=== PATIENT | female | born 1950 | race Caucasian/White ===

== ENCOUNTER 2017-04-20 21:44 | Emergency (ER) | payer MEDICARE, OTHER ==
[2017-04-20 22:11] VITALS: BP 198/104
== END 2017-04-20 23:17 | disposition left against medical advice (07) ==
LOC: ED 21:44
DX: R51 Headache (principal); M54.2 Cervicalgia; R10.9 Unspecified abdominal pain; Z53.21 Procedure and treatment not carried out due to patient leaving prior to being seen by health care provider
CPT/HCPCS: 99283

== ENCOUNTER 2017-04-21 14:36 | Emergency (ER) | payer MEDICARE, OTHER ==
[2017-04-21] MEDS ORDERED: SODIUM CHLORIDE 0.9% 1,000 ML IV ONE (15:36)
[2017-04-21] MEDS ORDERED: ONDANSETRON 4 MG/2 ML VIAL IVP STA ×2 (15:36→18:09)
[2017-04-21] MEDS ORDERED: HYDROmorphone 1 MG/ML SYRINGE IVP STA ×2 (15:36→17:19)
[2017-04-21 15:45] LABS: UA w/ MICROSCOPIC CHARGE YES; WBC,URINE 0-3 /HPF (0-5)
[2017-04-21] MEDS ORDERED: HYDROmorphone 1 MG/ML SYRINGE ONE ×2 (15:46→17:31)
--- NOTE | 2017-04-21 15:46 | ED Physician Documentation ---
History of Present Illness - Stated complaint Stated Complaint: SOLER/ABD PX/BACK PX - Chief complaint Chief Complaint: General - History obtained from History obtained from: Patient, Friend - History of Present Illness Timing: Other (Gradual onset headache yesterday morning, occipital radiating to the jaws. It waxed and waned throughout the day, she was actually in the ER last night but left prior to being seen. There is no associated fever. She has mild nausea. This morning she developed a low backache which after a couple of hours radiated to the front, like bad period cramps. She has currently untreated blood pressure, no history of colonoscopy. No abdominal or other surgeries.) Review of Systems Ten Systems: 10 systems reviewed and negative Constitutional: denies: Fever, Chills Eyes: reports: Photophobia. denies: Loss of vision Nose: denies: Rhinorrhea / runny nose, Congestion Throat: denies: Sore throat Cardiac: denies: Chest pain / pressure, Palpitations Respiratory: denies: Dyspnea, Cough GI: reports: Abdominal Pain, Nausea. denies: Vomiting, Constipation, Diarrhea : denies: Dysuria, Frequency PD PAST MEDICAL HISTORY - Past Medical History Cardiovascular: Hypertension Other Past Medical History: migraines - Past Surgical History Past Surgical History: No - Present Medications Home Medications: Ambulatory Orders Medication Instructions Recorded Confirmed Phenazopyridine HCl 100 mg PO DAILY 03/25/16 04/21/17 - Allergies Allergies/Adverse Reactions: Allergies Allergy/AdvReac Type Severity Reaction Status Date / Time Antihistamines - Alkylamine Allergy Unknown Verified 04/20/17 22:07 - Social History Does the pt smoke?: Yes Smoking Status: Current every day smoker Does the pt drink ETOH?: No Does the pt have substance abuse?: No - Immunizations Immunizations are current?: No - POLST Patient has POLST: No PD ED PE NORMAL - Vitals Vital signs reviewed: Yes - General General: Alert and oriented X 3, No acute distress, Well developed/nourished - HEENT HEENT: PERRL, EOMI, Ears normal - Neck Neck: Supple, no meningeal sign, No bony TTP - Cardiac Cardiac: RRR, No murmur - Respiratory Respiratory: No respiratory distress, Clear bilaterally - Abdomen Abdomen: Normal bowel sounds, Soft, Non tender - Back Back: No CVA TTP, No spinal TTP - Derm Derm: Normal color, Warm and dry - Extremities Extremities: No edema, No calf tenderness / cord - Neuro Neuro: Alert and oriented X 3, 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, No motor deficit, No sensory deficit, Normal speech - Psych Psych: Normal mood, Normal affect Results - Vitals Vitals: Vital Signs - 24 hr 04/21/17 04/21/17 04/21/17 14:40 16:54 18:09 Temperature 36.2 C L Heart Rate 91 89 94 Respiratory 18 15 20 Rate Blood Pressure 184/116 H 207/103 H 184/124 H O2 Saturation 97 100 98 Oxygen O2 Source Room air - Labs Labs: Laboratory Tests 04/21/17 04/21/17 04/21/17 14:55 16:00 16:00 WBC 8.8 RBC 4.88 Hgb 15.1 Hct 44.7 MCV 91.5 MCH 30.8 MCHC 33.7 RDW 13.7 Plt Count 321 MPV 6.9 L Neut # 5.8 Lymph # 2.1 [place] # 0.7 Eos # 0.1 Baso # 0.1 Absolute Nucleated RBC 0.00 Nucleated RBCs 0.0 ESR Sodium 137 Potassium 4.0 Chloride 99 L Carbon Dioxide 29 Anion Gap 9.0 BUN 11 Creatinine 0.7 Estimated GFR (MDRD) 84 L Glucose 105 H Calcium 10.3 Total Bilirubin 0.6 AST 22 ALT 18 Alkaline Phosphatase 58 Total Protein 8.4 H Albumin 4.8 Globulin 3.6 Albumin/Globulin Ratio 1.3 Lipase 23 Urine Color ORANGE Urine Clarity CLEAR Urine pH Ur Specific [place] Urine Protein Urine Glucose (UA) Urine Ketones Urine Occult Blood Urine Nitrite Urine Bilirubin Urine Urobilinogen Ur Leukocyte Esterase Urine RBC TNTC H Urine WBC 0-3 Ur Squamous Epith Cells RARE Squamous Urine Bacteria None Seen Ur Microscopic Review INDICATED Urine Culture Comments Not Reportable Ethyl Alcohol < 5.0 04/21/17 16:00 WBC RBC Hgb Hct MCV MCH MCHC RDW Plt Count MPV Neut # Lymph # [place] # Eos # Baso # Absolute Nucleated RBC Nucleated RBCs ESR 6 Sodium Potassium Chloride Carbon Dioxide Anion Gap BUN Creatinine Estimated GFR (MDRD) Glucose Calcium Total Bilirubin AST ALT Alkaline Phosphatase Total Protein Albumin Globulin Albumin/Globulin Ratio Lipase Urine Color Urine Clarity Urine pH Ur Specific [place] Urine Protein Urine Glucose (UA) Urine Ketones Urine Occult Blood Urine Nitrite Urine Bilirubin Urine Urobilinogen Ur Leukocyte Esterase Urine RBC Urine WBC Ur Squamous Epith Cells Urine Bacteria Ur Microscopic Review Urine Culture Comments Ethyl Alcohol - Rads (name of study) CT Head Radiology: EMP read contemporaneously (NAD) CT A/PO Radiology: EMP read contemporaneously (Diverticulosis, normal appendix) PD MEDICAL DECISION MAKING - ED course ED course: 66-year-old woman presents with multiple complaints including headache, abdominal, and back pain. After initial evaluation she was administered Dilaudid IV which resolved her headache, but not her stomach or back pain. On repeat examination after head CT, which was normal, she had developed some right lower quadrant tenderness. Urinalysis can be explained as she is taking some phenazopyridine. Given the migratory complaints, concern for intracranial emergency was less likely. A abdominal CT was done given the abdominal tenderness, this was negative. Patient requested discharge despite ongoing pain. Departure - Departure Disposition: 01 Home, Self Care Clinical Impression: Abdominal pain Qualifiers: Abdominal location: right lower quadrant Qualified Code(s): R10.31 - Right lower quadrant pain Back pain Qualifiers: Back pain location: low back pain Chronicity: acute Back pain laterality: bilateral Sciatica presence: without sciatica Qualified Code(s): M54.5 - Low back pain Headache Qualifiers: Headache type: unspecified Headache chronicity pattern: acute headache Intractability: not intractable Qualified Code(s): R51 - Headache Condition: Good Record reviewed to determine appropriate education?: Yes Instructions: ED Abdominal Pain Unkn Cause Comments: Return in 12-24 hours if not better, anytime if worse or if new symptoms develop. Your blood pressure was elevated today on check into the emergency department. This does not mean that you have hypertension, it is a common phenomenon to come to the emergency department and have elevated blood pressure. I recommend that she see her primary care physician within the week to have it rechecked when you are feeling better.
[2017-04-21] MEDS ORDERED: ONDANSETRON 4 MG/2 ML VIAL ONE ×2 (15:47→18:13)
--- NOTE | 2017-04-21 16:09 | CT Preliminary Report ---
Exam: CT Head W/O IMPRESSION: Normal head CT. [facility] SITE ID: [id number]
--- NOTE | 2017-04-21 16:12 | CT Report ---
EXAM: CT HEAD EXAM DATE: 04/21/2017 03:58 PM. CLINICAL HISTORY: Headache. COMPARISON: None. TECHNIQUE: Multiaxial CT images were obtained from the foramen magnum to the vertex. IV contrast: Non e. Reformats: Coronal. In accordance with CT protocol optimization, one or more of the following dose reduction techniques w ere utilized for this exam: automated exposure control, adjustment of mA and/or KV based on patient s ize, or use of iterative reconstructive technique. FINDINGS: Parenchyma: No intraparenchymal hemorrhage. No evidence of mass, midline shift, or CT findings of inf arction. Gama-white differentiation is distinct. Extraaxial Spaces: Normal for age. No subdural or epidural collections identified. Ventricles: Normal in size and position. Sinuses: Imaged paranasal sinuses, orbits, and mastoids show no significant abnormality. Bones: No evidence of fracture or calvarial defect. Other: None. IMPRESSION: Normal head CT. [facility] Referring Provider Line: [phone] SITE ID: [id number]
[2017-04-21 16:40] LABS: ALBUMIN/GLOBULIN RATIO 1.3 (1.0-2.2); BILIRUBIN,TOTAL 0.6 mg/dL (0.2-1.0); BUN - BLOOD UREA NITROGEN 11 mg/dL (6-20); CALCIUM 10.3 mg/dL (8.5-10.3); CARBON DIOXIDE - CO2 29 mmol/L (21-32); CHLORIDE 99 mmol/L (101-111); CREATININE 0.7 mg/dL (0.4-1.0); GFR - MDRD 84 (>89); GLUCOSE 105 mg/dL (70-100); LIPASE 23 U/L (22-51); SODIUM 137 mmol/L (135-145); TOTAL PROTEIN 8.4 g/dL (6.7-8.2)
[2017-04-21 17:04] LABS: BASOPHILS # (AUTO) 0.1 10^3/uL (0.0-0.1); BASOPHILS % (AUTO) 0.9 %; EOSINOPHILS # (AUTO) 0.1 10^3/uL (0.0-0.7); EOSINOPHILS % (AUTO) 0.7 %; HCT - HEMATOCRIT 44.7 % (37.0-47.0); HGB - HEMOGLOBIN 15.1 g/dL (12.0-16.0); LYMPHOCYTES # (AUTO) 2.1 10^3/uL (1.5-3.5); LYMPHOCYTES % (AUTO) 24.3 %; MEAN CORPUSCULAR HEMOGLOBIN 30.8 pg (27.0-31.0); MEAN CORPUSCULAR HGB CONC 33.7 g/dL (32.0-36.0); MEAN CORPUSCULAR VOLUME 91.5 fL (81.0-99.0); MEAN PLATELET VOLUME 6.9 fL (7.9-10.8); MONOCYTES # (AUTO) 0.7 10^3/uL (0.0-1.0); MONOCYTES % (AUTO) 7.9 %; NEUTROPHILS # (AUTO) 5.8 10^3/uL (1.5-6.6); NEUTROPHILS % (AUTO) 66.2 %; RED BLOOD COUNT 4.88 10^6/uL (4.20-5.40); RED CELL DISTRIBUTION WIDTH 13.7 % (12.0-15.0); UNCORRECTED WHITE BLOOD COUNT 8.8 x10^3/uL; WHITE BLOOD COUNT 8.8 x10^3/uL (4.8-10.8)
[2017-04-21] MEDS ORDERED: IOPAMIDOL-300 100 ML VIAL IVP ONE (17:55)
--- NOTE | 2017-04-21 18:37 | CT Preliminary Report ---
Exam: CT Abdomen/Pelvis W/ IMPRESSION: 1. Normal appendix. No focal right lower quadrant inflammation. 2. Diverticulosis. [facility] SITE ID: [id number]
--- NOTE | 2017-04-21 18:39 | CT Report ---
EXAM: CT ABDOMEN AND PELVIS EXAM DATE: 04/21/2017 05:58 PM. CLINICAL HISTORY: IV only, RLQ pain. COMPARISONS: 03/26/2017. TECHNIQUE: Routine helical CT imaging was performed through the abdomen and pelvis. IV contrast: 100 cc Isovue-300. Enteric contrast: No. Reconstructions: Coronal and sagittal. In accordance with CT protocol optimization, one or more of the following dose reduction techniques w ere utilized for this exam: automated exposure control, adjustment of mA and/or KV based on patient s ize, or use of iterative reconstructive technique. FINDINGS: Lung Bases: Mild cardiac enlargement noted. No effusions. Incidental small hiatal hernia noted. Liver: Normal. No masses. Gallbladder/Bile Ducts: Unremarkable. Spleen: Normal. Pancreas: Normal. Adrenal Glands: Normal. Kidneys: Normal. No masses or hydronephrosis. Peritoneal Cavity/Bowel: Normal. No free fluid, free air or adenopathy. No masses or acute inflammato ry process. The appendix is well visualized and normal. There are multiple diverticula seen which mos t severely affect the sigmoid colon. No wall thickening or adjacent inflammation seen. No obstructi on noted. Normal appendix seen on image 6, 21. The terminal ileum appears mildly thickened without s ignificant adjacent inflammation best seen on image 6, 16. This could be due to under distention. Pelvic Organs: Normal. The bladder and visualized pelvic organs are within normal limits. Vasculature: No aneurysms or other significant abnormality. Bones: No significant abnormality. Other: None. IMPRESSION: 1. Normal appendix. No focal right lower quadrant inflammation. 2. Diverticulosis. [facility] Referring Provider Line: [phone] SITE ID: [id number]
[2017-04-21] MEDS ORDERED: KETOROLAC 60 MG/2 ML VIAL IVP STA (18:50)
[2017-04-21] MEDS ORDERED: KETOROLAC 30 MG/ML VIAL ONE (18:56)
[2017-04-21] MEDS ORDERED: oxyCODONE/ACET 5/325 Prepack 4 PO STA (19:22)
[2017-04-21] MEDS ORDERED: oxyCODONE/ACET 5/325 Prepack 4 PO ONE (19:49)
[2017-04-21 20:00] VITALS: BP 164/98
== END 2017-04-21 20:29 | disposition home or self-care (01) ==
LOC: ED 14:36
DX: R51 Headache (principal); R10.31 Right lower quadrant pain; M54.5 Low back pain; I10 Essential (primary) hypertension; F17.200 Nicotine dependence, unspecified, uncomplicated
CPT/HCPCS: 36415; 70450; 74177; 80053; 81001; 83690; 85025; 85651; 86140; 96374; 96375; 96376; 99283; 99285; G0480; J1170; Q9967; 80320; 81003; 87086

== ENCOUNTER 2017-11-24 18:23 | Emergency (ER) | payer MEDICARE ==
[2017-11-24] MEDS ORDERED: predniSONE 20 MG TABLET PO STA (18:53)
[2017-11-24] MEDS ORDERED: IPRATROPIUM/ALBUTEROL 3 ML NEB INH STA (18:53)
--- NOTE | 2017-11-24 18:58 | ED Physician Documentation ---
PD HPI URI - Stated complaint Stated Complaint: DIFF BREATHING - Chief complaint Chief Complaint: Resp - History obtained from History obtained from: Patient - History of Present Illness Timing - onset: How many days ago (2) Timing duration: Days (2) Timing details: Gradual onset Pain level max: 3 Pain level now: 3 Associated symptoms: Nasal congestion, Rhinorrhea, Dyspnea. No: Fever Contributing factors: Sick contact, COPD / asthma (smokes 1ppd) Improves by: Rest, MDI/nebulizer (tried an inhaler for the first time earlier today and felt relief.) Worsened by: Activity, Breathing Similar symptoms before: Diagnosis (COPD, URI) Review of Systems Constitutional: denies: Fever, Chills Ears: denies: Ear pain Nose: reports: Rhinorrhea / runny nose, Congestion Throat: denies: Sore throat Cardiac: denies: Chest pain / pressure Respiratory: reports: Dyspnea, Cough, Wheezing GI: denies: Nausea, Vomiting, Diarrhea Skin: denies: Rash Musculoskeletal: denies: Neck pain, Back pain Neurologic: denies: Headache PD PAST MEDICAL HISTORY - Past Medical History Past Medical History: Yes Cardiovascular: Hypertension Neuro: Headache/migraine - Past Surgical History Past Surgical History: No - Present Medications Home Medications: Ambulatory Orders Medication Instructions Recorded Confirmed Albuterol Sulf [Ventolin Hfa 1 - 2 puffs INH Q4HR PRN #1 inhaler 11/24/17 Inhaler] Lisinopril 10 mg PO DAILY 11/24/17 11/24/17 predniSONE [Prednisone] 40 mg PO DAILY #10 tablet 11/24/17 - Allergies Allergies/Adverse Reactions: Allergies Allergy/AdvReac Type Severity Reaction Status Date / Time Antihistamines - Alkylamine Allergy Unknown Verified 04/20/17 22:07 - Social History Does the pt smoke?: Yes Smoking Status: Current every day smoker Does the pt drink ETOH?: No Does the pt have substance abuse?: No - Immunizations Immunizations are current?: No - POLST Patient has POLST: No PD ED PE NORMAL - Vitals Vital signs reviewed: Yes - General General: Alert and oriented X 3, No acute distress - HEENT HEENT: Moist mucous membranes - Neck Neck: Supple, no meningeal sign - Cardiac Cardiac: RRR, Strong equal pulses - Respiratory Respiratory: No respiratory distress, Other (Diminished breath sounds and wheezing bilaterally) - Abdomen Abdomen: Soft, Non tender, Non distended - Derm Derm: Warm and dry - Neuro Neuro: Alert and oriented X 3 - Psych Psych: Normal mood, Normal affect Results - Vitals Vitals: Vital Signs - 24 hr 11/24/17 11/24/17 11/24/17 18:26 19:20 20:16 Temperature 36.5 C Heart Rate 111 H 102 H 88 Respiratory 22 18 16 Rate Blood Pressure 204/121 H 202/111 H O2 Saturation 95 95 Oxygen O2 Source Room air PD MEDICAL DECISION MAKING - ED course Complexity details: reviewed old records, re-evaluated patient, considered differential, d/w patient ED course: Patient is a 67-year-old female with what appears to be a COPD exacerbation. Smokes 1 pack per day. She is also chronically hypertensive, blood pressure is normally between 180 and 200 systolic when she comes to the emergency department. Did not take her lisinopril today. Patient feels much better after nebulizer treatments as well as steroid treatment. She is not hypoxic. No respiratory distress. Systolic blood pressure decreased to 180. Headache resolved. We will have her follow-up with her doctor for further care. Patient counseled regarding signs and symptoms for which I believe and urgent re -evaluation would be necessary. Patient with good understanding of and agreement to plan and is comfortable going home at this time This document was made in part using voice recognition software. While efforts are made to proofread this document, sound alike and grammatical errors may occur. Departure - Departure Disposition: 01 Home, Self Care Clinical Impression: Viral URI with cough Hypertension Qualifiers: Hypertension type: unspecified Qualified Code(s): I10 - Essential (primary) hypertension Headache Qualifiers: Headache type: unspecified Headache chronicity pattern: acute headache Intractability: not intractable Qualified Code(s): R51 - Headache Condition: Good Instructions: ED URI Viral Follow-Up: Kellie Ghosh ARNP [Primary Care Provider] - Within 1 week Prescriptions: Albuterol Sulf [Ventolin Hfa Inhaler] 1 - 2 puffs INH Q4HR PRN #1 inhaler PRN Reason: Shortness Of Air/Wheezing predniSONE [Prednisone] 40 mg PO DAILY #10 tablet Comments: Return if you worsen. Use the inhaler every 3 hours as needed at home. Take your lisinopril when you arrive home tonight.
[2017-11-24] MEDS ORDERED: KETOROLAC 60 MG/2 ML VIAL IM STA (19:49)
[2017-11-24 20:16] VITALS: BP 202/111
== END 2017-11-24 20:42 | disposition home or self-care (01) ==
LOC: ED 18:23
DX: J06.9 Acute upper respiratory infection, unspecified (principal); B97.89 Other viral agents as the cause of diseases classified elsewhere; R05 Cough; I10 Essential (primary) hypertension; R51 Headache
CPT/HCPCS: 94640; 96372; 99283; 99284; J7512; J7620

== ENCOUNTER 2018-12-17 07:48 | Outpatient (CLI) | payer MEDICARE ==
[2018-12-17 10:55] LABS: BASOPHILS # (AUTO) 0.1 10^3/uL (0.0-0.1); BASOPHILS % (AUTO) 0.9 %; EOSINOPHILS # (AUTO) 0.2 10^3/uL (0.0-0.7); EOSINOPHILS % (AUTO) 2.3 %; HGB - HEMOGLOBIN 13.9 g/dL (12.0-16.0); LYMPHOCYTES # (AUTO) 1.6 10^3/uL (1.5-3.5); LYMPHOCYTES % (AUTO) 24.1 %; MEAN CORPUSCULAR HEMOGLOBIN 30.4 pg (27.0-31.0); MEAN CORPUSCULAR HGB CONC 33.1 g/dL (32.0-36.0); MEAN CORPUSCULAR VOLUME 91.8 fL (81.0-99.0); MEAN PLATELET VOLUME 7.2 fL (7.9-10.8); MONOCYTES # (AUTO) 0.5 10^3/uL (0.0-1.0); MONOCYTES % (AUTO) 7.8 %; NEUTROPHILS # (AUTO) 4.4 10^3/uL (1.5-6.6); NEUTROPHILS % (AUTO) 64.9 %; PLT - PLATELET COUNT 359 10^3/uL (130-450); RED BLOOD COUNT 4.57 10^6/uL (4.20-5.40); RED CELL DISTRIBUTION WIDTH 13.8 % (12.0-15.0); WHITE BLOOD COUNT 6.8 x10^3/uL (4.8-10.8)
[2018-12-17 11:29] LABS: ALBUMIN 4.4 g/dL (3.2-5.5); ALBUMIN/GLOBULIN RATIO 1.3 (1.0-2.2); ALKALINE PHOSPHATASE 54 IU/L (42-121); ALT ALANINE AMINOTRANSFERASE 19 IU/L (10-60); AST ASPARTATE AMINOTRANSFERASE 26 IU/L (10-42); BILIRUBIN,TOTAL 0.7 mg/dL (0.2-1.0); BUN - BLOOD UREA NITROGEN 15 mg/dL (6-20); CALCIUM 9.4 mg/dL (8.5-10.3); CARBON DIOXIDE - CO2 28 mmol/L (21-32); CHLORIDE 103 mmol/L (101-111); CHOLESTEROL 193 mg/dL; CREATININE 0.7 mg/dL (0.4-1.0); GFR - MDRD 83 (>89); GLUCOSE 100 mg/dL (70-100); HDL CHOLESTEROL 64 mg/dL; LDL CHOLESTEROL,CALCULATED 117 mg/dL; LDL/HDL RATIO 1.8 (<4.4); SODIUM 140 mmol/L (135-145); TOTAL PROTEIN 7.9 g/dL (6.7-8.2); VLDL CHOLESTEROL 12 mg/dL
== END 2018-12-17 07:49 | disposition home or self-care (01) ==
LOC: LAB.F 07:48
PROVIDERS: ATTEND Nurse Practitioner Family
DX: I10 Essential (primary) hypertension (principal); E78.5 Hyperlipidemia, unspecified
CPT/HCPCS: 36415; 80053; 80061; 83721; 84443; 85025

== ENCOUNTER 2020-08-27 15:20 | Outpatient (CLI) | payer MEDICARE | END 2020-08-27 23:59 | disposition home or self-care (01) | LOC: LAB.R 15:20 | PROVIDERS: ATTEND Physician Assistant | DX: J02.9 Acute pharyngitis, unspecified (principal); Z20.828 Contact with and (suspected) exposure to other viral communicable diseases ==

== ENCOUNTER 2020-09-14 14:39 | Emergency (ER) | payer MEDICARE ==
[2020-09-14] MEDS ORDERED: LORazepam 1 MG TABLET PO STA (15:00)
--- NOTE | 2020-09-14 15:03 | ED Physician Documentation ---
PD HPI FOCAL NEURO - Stated complaint Stated Complaint: DIZZINESS, HBP - Chief complaint Chief Complaint: Heent - History obtained from History obtained from: Patient - Additional information Additional information: About 2 weeks ago she developed shingles on the right side of the face. She was treated with Valtrex. After about 5 days of the Valtrex she developed spinning vertigo, worse with the right ear down and worse when she turns her head. Over the last 3 days or so the vertigo has been constant and not resolved with trying Dramamine at home. She denies headache. The pain of the shingles is gone. Risk factors for vascular disease include longstanding hypertension treated with lisinopril and tobacco abuse. Review of Systems Ten Systems: 10 systems reviewed and negative Constitutional: denies: Fever, Chills Ears: denies: Ear pain Nose: denies: Rhinorrhea / runny nose, Congestion Throat: denies: Sore throat PD PAST MEDICAL HISTORY - Past Medical History Cardiovascular: Hypertension - Past Surgical History Past Surgical History: No - Present Medications Home Medications: Ambulatory Orders Medication Instructions Recorded Confirmed lisinopriL [Lisinopril] 10 mg PO DAILY 11/24/17 09/14/20 LORazepam [Ativan] 1 mg PO TID PRN #12 tablet 09/14/20 predniSONE [Deltasone] 20 mg PO [id number] #21 tab 09/14/20 - Allergies Allergies/Adverse Reactions: Allergies Allergy/AdvReac Type Severity Reaction Status Date / Time Antihistamines - Alkylamine Allergy Unknown Verified 09/14/20 15:17 - Social History Does the pt smoke?: Yes Smoking Status: Current every day smoker Does the pt drink ETOH?: No Does the pt have substance abuse?: No - Immunizations Immunizations are current?: No - POLST Patient has POLST: No PD ED PE NORMAL - Vitals Vital signs reviewed: Yes - General General: Alert and oriented X 3, No acute distress - HEENT HEENT: PERRL, EOMI (no nystagmus), Other (Healing shingles on the right low occiput) - Neck Neck: Supple, no meningeal sign, No bony TTP - Neuro Neuro: Alert and oriented X 3, 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, No motor deficit, No sensory deficit, Normal speech, Other (Normal [id number] and ygly-[id number] testing) Eye Opening: Spontaneous Motor: Obeys Commands Verbal: Oriented GCS Score: 15 Results - Vitals Vitals: Vital Signs - 24 hr 09/14/20 09/14/20 09/14/20 14:45 15:12 15:42 Temperature 36.5 C Heart Rate 112 H 94 87 Respiratory 12 18 16 Rate Blood Pressure 178/102 H 191/110 H 174/100 H O2 Saturation 98 97 97 09/14/20 09/14/20 16:08 18:24 Temperature 36.2 C L Heart Rate 86 92 Respiratory 16 19 Rate Blood Pressure 178/109 H 186/96 H O2 Saturation 97 96 Oxygen O2 Source Room air PD MEDICAL DECISION MAKING - ED course ED course: 70-year-old woman with now constant vertigo without nystagmus after episode of shingles. Most likely labyrinthitis, that said she is at risk for vascular etiology and an MRI will be done. [place] better p PO ativan. Departure - Departure Clinical Impression: Vertigo Hypertension Qualifiers: Hypertension type: essential hypertension Qualified Code(s): I10 - Essential (primary) hypertension Condition: Stable Instructions: ED Vertigo Unspecified Prescriptions: LORazepam [Ativan] 1 mg PO TID PRN #12 tablet PRN Reason: Vertigo predniSONE [Deltasone] 20 mg PO [id number] #21 tab Comments: Call your doctor to arrange a follow-up appointment, make the next available appointment. In the interim, return anytime if worse or if new symptoms develop.
[2020-09-14] MEDS ORDERED: IBUPROFEN 600 MG TABLET PO STA (19:21)
--- NOTE | 2020-09-14 19:24 | MRI Report ---
PROCEDURE: Brain W/O INDICATIONS: vertigo TECHNIQUE: Noncontrast axial T1 spin echo, axial T2 fast spin echo, sagittal and axial FLAIR, coronal T2 fast sp in echo, axial gradient echo, axial diffusion and ADC through the brain. COMPARISON: None. FINDINGS: Image quality: Excellent. CSF Spaces: Basal cisterns are patent. No extra-axial fluid collections. Ventricles are normal in size and shape. Brain: No intracranial masses or hemorrhage. There is mild cerebral volume loss. There are mild per iventricular and subcortical white matter chronic microvascular ischemic changes. Gama/white matter i nterface is normal. Brainstem appears normal. Diffusion-weighted images demonstrate no acute ischem ic insult. Small, chronic left frontal subcortical white matter lacunar infarct. Normal intravascular flow voids are present. Skull and face: Calvarium has normal marrow signal. Orbits appear normal. Sinuses: Sinuses and mastoids are clear. IMPRESSION: 1. No acute intracranial disease process. 2. No areas of acute infarction. 3. Small, left frontal subcortical white matter chronic lacunar infarct. 4. Mild, diffuse cerebral volume loss. 5. Mild periventricular and subcortical white matter chronic microvascular ischemic change. Reviewed by: Eladia Arevalo MD, PhD on 09/14/2020 7:22 PM PST Approved by: Eladia Arevalo MD, PhD on 09/14/2020 7:22 PM PST Station ID: [id number]
[2020-09-14 20:04] VITALS: BP 179/109
== END 2020-09-14 20:18 | disposition home or self-care (01) ==
LOC: ED 14:39
DX: R42 Dizziness and giddiness (principal); B02.9 Zoster without complications; I10 Essential (primary) hypertension; F17.200 Nicotine dependence, unspecified, uncomplicated
CPT/HCPCS: 70551; 99284; A9270; J8499

== ENCOUNTER 2022-09-14 07:25 | Outpatient (CLI) | payer MEDICARE ==
[2022-09-14 15:26] LABS: BASOPHILS # (AUTO) 0.1 10^3/uL (0.0-0.1); BASOPHILS % (AUTO) 1.3 %; EOSINOPHILS # (AUTO) 0.2 10^3/uL (0.0-0.7); EOSINOPHILS % (AUTO) 2.8 %; HCT - HEMATOCRIT 45.4 % (37.0-47.0); HGB - HEMOGLOBIN 14.3 g/dL (12.0-16.0); LYMPHOCYTES # (AUTO) 1.7 10^3/uL (1.5-3.5); LYMPHOCYTES % (AUTO) 23.1 %; MEAN CORPUSCULAR HGB CONC 31.5 g/dL (32.0-36.0); MEAN CORPUSCULAR VOLUME 95.2 fL (81.0-99.0); MEAN PLATELET VOLUME 8.7 fL (7.9-10.8); MONOCYTES # (AUTO) 0.7 10^3/uL (0.0-1.0); MONOCYTES % (AUTO) 8.9 %; NEUTROPHILS # (AUTO) 4.7 10^3/uL (1.5-6.6); NEUTROPHILS % (AUTO) 63.6 %; PLT - PLATELET COUNT 389 10^3/uL (130-450); RED BLOOD COUNT 4.77 10^6/uL (4.20-5.40); WHITE BLOOD COUNT 7.5 x10^3/uL (4.8-10.8)
[2022-09-14 16:16] LABS: ALBUMIN 4.3 g/dL (3.2-5.5); ALBUMIN/GLOBULIN RATIO 1.2 (1.0-2.2); ALKALINE PHOSPHATASE 53 IU/L (42-121); ALT ALANINE AMINOTRANSFERASE 14 IU/L (10-60); AST ASPARTATE AMINOTRANSFERASE 17 IU/L (10-42); BILIRUBIN,TOTAL 0.6 mg/dL (0.2-1.0); BUN - BLOOD UREA NITROGEN 16 mg/dL (6-20); CALCIUM 9.5 mg/dL (8.5-10.3); CARBON DIOXIDE - CO2 29 mmol/L (21-32); CHLORIDE 101 mmol/L (101-111); CHOL/HDL RATIO 3.3 (<4.4); CHOLESTEROL 199 mg/dL; GFR - MDRD 55 (>89); GLUCOSE 107 mg/dL (70-100); HDL CHOLESTEROL 61 mg/dL; LDL CHOLESTEROL,CALCULATED 126 mg/dL; LDL/HDL RATIO 2.1 (<4.4); POTASSIUM 4.3 mmol/L (3.5-5.0); SODIUM 139 mmol/L (135-145); TOTAL PROTEIN 7.9 g/dL (6.7-8.2); TRIGLYCERIDES 58 mg/dL; VLDL CHOLESTEROL 12 mg/dL
== END 2022-09-14 07:26 | disposition home or self-care (01) ==
LOC: LAB.S 07:25
PROVIDERS: ATTEND Registered Nurse
DX: I10 Essential (primary) hypertension (principal)
CPT/HCPCS: 36415; 80053; 80061; 83721; 85025